=== PATIENT | female | born 1985 ===

== ENCOUNTER 2025-04-03 23:59 | Emergency (ER) | payer BC, SELFPAY ==
[2025-04-04 00:06] VITALS: BP 129/91
[2025-04-04 01:27] LABS: Hematocrit 35.5 % (37.0-47.0); Hemoglobin 12.8 g/dL (12.0-16.0); Mean Corp Hgb Conc. 36.1 g/dL (33.0-37.0); Mean Corpuscular Volume 88.8 fL (81.0-99.0); Nucleated Red Blood Cells % 0 %; Platelet Count 279 10^3/uL (130-400); Red Cell Dist. Width 12.1 % (11.5-14.5)
[2025-04-04 01:31] LABS: Urine Character Clear (Clear)
[2025-04-04 01:32] LABS: HCG, Serum Qualitative Screen Negative
[2025-04-04 01:36] LABS: ALT (SGPT) 15 U/L (0-35); AST (SGOT) 23 U/L (14-36); Albumin 4.6 g/dl (3.5-5.0); Alkaline Phosphatase 64 U/L (38-126); Blood Urea Nitrogen 14 mg/dl (7-17); Calcium 8.7 mg/dl (8.4-10.2); Carbon Dioxide 23 mmol/L (22-30); Chloride 110 mmol/L (98-107); Glucose 96 mg/dl (70-99); Potassium 4.0 mmol/L (3.5-5.1); Sodium 140 mmol/L (135-145); Total Protein 6.9 g/dl (6.3-8.2); eGFR > 60.00
--- NOTE | 2025-04-04 02:41 | ED.GENMED ---
History of Present Illness
General
Chief Complaint: Flank Pain
Source: patient
Exam Limitations: none
Time Seen by Provider: 04/04/25 00:29
Nursing documentation reviewed up to this point in time: agreed with
History of Present Illness
History of Present Illness:
Note:
CHIEF COMPLAINT(S)
Flank pain and recurrent urinary tract infections (UTIs).
HISTORY OF PRESENT ILLNESS
The patient is a 39-year-old female with a history of recurrent UTIs, currently presenting with flank pain persisting for a couple of weeks. The patient reports recently starting Macrobid (nitrofurantoin) after previously being on Bactrim
(sulfamethoxazole/trimethoprim). The patient mentions a history of renal artery concerns following a CT scan requested by her primary care physician, indicating a blockage that may impact blood pressure and exacerbate other symptoms. The CT scan
reportedly showed a smaller left kidney. Her current left flank pain has been attributed to this, though she also experiences bilateral flank issues.
The patient has been hospitalized twice this year for similar issues and reports that a urine test from recent examinations revealed the presence of Escherichia coli, marking the sixth similar occurrence this year.
The patient also mentions recently being diagnosed with cervical dysplasia and was advised surgery, which was delayed due to scheduling issues. There is noticeable voice changes, confusion, potentially related to potassium imbalances.
ADDITIONAL HISTORY OBTAINED FROM SOURCES OTHER THAN THE PATIENT
According to the patients primary care physician, a CT scan showed blockages between the kidney and bladder, which might influence blood pressure regulation.
EXTERNAL RECORDS REVIEWED
Based on recent imaging ordered by her primary care physician, there is a smaller presence of the left kidney with potential renal blockage in the artery between the kidney and bladder.
CHRONIC MEDICAL CONDITIONS SIGNIFICANTLY AFFECTING CARE
1. Recurrent urinary tract infections.
2. Cervical dysplasia.
REVIEW OF SYSTEMS
- Genitourinary: Recurrent urinary tract infections, blood in urine, flank pain.
- Neurological: Confusion, voice changes.
PHYSICAL EXAM
- Nursing notes reviewed and vital signs reviewed.
Vital signs and allergy list reviewed and agreed with.
GENERAL: Alert , in minimal to moderate apparent distress
EYE: pupils equal, EOMI, anicteric
NECK: Supple, no significant adenopathy. No masses. Trachea midline
ENT: Oropharynx is clear, mmm.
CARDIAC: Regular rate and rhythm . No M/R/G
LUNGS: Clear breath sounds bilaterally, no acute respiratory distress, no wheezes/rales/rhonchi
ABDOMEN: Soft, without focal tenderness, no r/g, slight CVA tenderness bilaterally normal BSx4q
NEUROLOGICAL: Alert and oriented, no focal neuro deficits
SKIN: Warm and dry, skin intact. Well-healed scars on the bilateral forearms
MUSCULOSKELETAL: No edema, well perfused. Moves all 4 extremities
PSYCH: Normal and appropriate interaction.
PROBLEM LIST
Acute Problems:
1. Recurrent urinary tract infections with Escherichia coli.
2. Flank pain, currently affecting the left side.
3. Potassium imbalance leading to confusion and voice changes.
Chronic Problems:
1. Cervical dysplasia.
2. Recurrent UTIs.
PLAN
A CT scan to further evaluate the kidneys will be conducted today.
DIFFERENTIAL DIAGNOSIS
The Differential Diagnosis includes, in no particular order and is not limited to:
1. Pyelonephritis
2. Urolithiasis
3. Renal artery stenosis
4. Hydronephrosis
5. Cystitis
6. Renal infarction
7. Interstitial nephritis
8. Polycystic kidney disease
9. Urinary tract obstruction
10. Vesicoureteral reflux
Disposition:
SUMMARY OF ENCOUNTER
A 39-year-old female presented with flank pain and a history of recurrent urinary tract infections. She has been on multiple antibiotics and is followed by her primary care physician. A recent CT scan was negative, and lab results, including
potassium levels, were within normal limits at 4.0.
PLAN
The patient will continue with her home medications and has been prescribed nitrofurantoin.
INDEPENDENT REVIEW OF LABS AND INTERPRETATION OF TESTS
My independent review of labs shows potassium level at 4.0, which is within the normal range.
FOLLOW-UP INSTRUCTIONS
The patient will follow up with the urology team for further evaluation and management.
MEDICATION RECONCILIATION
The patient was prescribed nitrofurantoin.
MEDICAL DECISION MAKING
- Number and Complexity of Problems Addressed: Chronic conditions affecting care include recurrent urinary tract infections and flank pain.
- Data:
Category 1: Non-emergency department records reviewed. Labs reviewed, including potassium.
- Category 2: My independent interpretation of the CT scan confirms negative findings.
- Risk: Prescription medication was prescribed.
DIAGNOSIS
- Flank pain (R10.9)
- Recurrent urinary tract infections (N39.0)
Phy Exam
Physical Exam
Physical Exam:
.
Sepsis
Sepsis Screening
Sepsis Assessment: Sepsis Ruled Out
Sepsis Screen
Sepsis Screen: Sepsis Ruled Out
Date: 04/05/25
Time: 03:05
Course
Orders/Labs/Results
Orders:
Orders
04/04/25 00:24
Test Result ONCE
04/04/25 00:30
CT Abd/pel Without Iv Or Oral Urgent
Comment:
Reason For Exam: flank pain
04/04/25 01:04
Complete Blood Count/With Diff Urgent
Comprehensive Metabolic Panel Urgent
HCG, Serum Qualitative Screen Urgent
Urinalysis Reflex To Culture Urgent
Date Specimen was Collected: 04/04/25
Time Specimen was Collected: 00:23
Urine Microscopic Reflex Cult Urgent
04/04/25 02:41
Ketorolac [Toradol] 15 mg IM NOW STA
Abnormal Lab Results
04/04/25
01:04
RBC 4.00 L 10^6/uL
(4.20-5.40)
Hct 35.5 L %
(37.0-47.0)
MCH 32.0 H pg
(27.0-31.0)
Chloride 110 H mmol/L
(98-107)
Ur Occult Blood Reflex 2+ A
(Negative)
Urine RBC 7-10 A /HPF
(0-2)
Urine Bacteria (Reflex) Few A
(Negative)
Urine Albumin (Reflex) 2+ A
(Neg - Trace)
04/04/25 01:04
04/04/25 01:04
Vital Signs
Initial and Last Documented VS:
Initial Vital Signs
Temp Pulse BP Pulse Ox
98.5 F 99 129/91 98
04/04/25 00:06 04/04/25 00:06 04/04/25 00:06 04/04/25 00:06
Last Documented Vital Signs
Temp Pulse Resp BP Pulse Ox
98.5 F 87 18 126/87 100
04/04/25 00:06 04/04/25 03:01 04/04/25 03:01 04/04/25 03:01 04/04/25 03:01
*Radiology
Radiology exam reviewed: radiology read reviewed
*Pulse Oximetry
SaO2: 98
Oxygen Mode of Delivery: Room air
Patient hypoxic: no
*Critical Care Note
Total Time (30-74mins, 75-104mins- exclusive of procedures): Not Applicable
Update Note
Update Note:
NAME: MARISEL ROSAS
DATE OF EXAM: 04/04/2025
Patient No: [id number]
Physician: SURINDER^MELE^Jenn
Date of : 1985
Past Medical History (entered by Technologist):
Reason For Exam (entered by Technologist):
Other Notes (entered by Technologist): pt states h/o uti, feels like she has uti
Additional Information (per [facility]):
CT ABDOMEN AND PELVIS WITHOUT IV CONTRAST
Comparison: None available
IMPRESSION:
No evidence for ureteral or hydronephrosis bilaterally. Punctate nonobstructing left renal calculus. No significant perinephric stranding. Urinary bladder is grossly unremarkable.
Gallbladder and pancreas are gross unremarkable. Hepatomegaly.
Moderate right colonic stool. No bowel obstruction. Appendix is unremarkable.
Report finalized/faxed at 2:37 AM ET. If there are any questions, please contact [facility] at [phone].
Jamison Sawyer M.D.
This report has been electronically signed and verified by the Radiologist whose name is printed above.
ED Attending Note
-
Portions of this chart may have been created with voice recognition software.� Occasional wrong word or��sound alike� substitutions may have occurred due to the inherent limitations of voice recognition software.
Discharge Plan
Departure
Patient Disposition: Home (Routine Discharge)
Date of Disposition: 04/04/25
Time of Disposition: 02:45
Patient with high blood pressure during this ER visit?: Yes
Condition: Fair
Discharge Problem:
Flank pain
Instructions: Flank Pain (DC), BLOOD PRESSURE
Prescriptions:
New
diclofenac sodium 75 mg tablet,delayed release (DR/EC)
75 mg PO BID Qty: 10 0RF
phenazopyridine [Pyridium] 100 mg tablet
100 mg PO TID 3 Days Qty: 9 0RF
Referrals:
Asad Reeder MD [Active, Urology] - Next open appointment
UNKNOWN - PT DOES,NOT KNOW [Family Provider]
Activity Restrictions/Additional Instructions:
Thank You for choosing [facility].
It was a pleasure meeting you and taking part in your care. We hope for your continued healing and wellness.
Please read discharge instructions in their entirety. However, they are for general education and may not describe your exact diagnosis at discharge. Information on your ER visit and medical conditions were discussed with you along with appropriate
follow up information...
If indicated, please take your medications as instructed and indicated on discharge paperwork.
Please schedule a follow up appointment as directed. Call to schedule an appointment
Please return to the emergency department with ANY change in, persisting, or worsening of symptoms. If any of your symptoms do not improve, or persist, or become more severe within 6-12 hours, please return to the emergency department for further
care.
Please return to the emergency department if you develop a headache, neck pain/stiffness, fever greater than 100.4F, chest pain, shortness of breath, persistent nausea, vomiting, slurred speech, difficulty walking, numbness/tingling, weakness, signs
of infection or any other symptoms that are worrisome to you.
If you have any questions or concerns please do not hesitate to call the Hospital at
Interventions
Interventions:
*Risk Screen - Suicide Last Done: 04/04/25 00:11
*General Assessment Last Done: 04/04/25 03:02
*Neglect/Abuse Screening Last Done: 04/04/25 00:11
*ED- Fall Risk Assessment Last Done: 04/04/25 00:11
*ED COVID-19 Vaccine History Last Done: 04/04/25 00:11
*Nursing Disposition Last Done: 04/04/25 03:02
NE-Zdgclb-Hstejnillk Assessment Last Done: 04/04/25 02:02
ED-Female Genitourinary Assessment Last Done: 04/04/25 02:02
Discharge Date and Time
Discharge Date/Time: 04/04/25 03:02
Print Language: CROATIAN
[2025-04-04] MEDS: TORADOL 15 MG IM (02:54)
[2025-04-04 03:01] VITALS: BP 126/87
== END 2025-04-04 03:02 | disposition home or self-care (01) ==
LOC: EMR 23:59
PROVIDERS: Emergency Medicine; EMERGENCY PHYSICIAN Student in an Organized Health Care Education/Training Program
DX: R10.9 Unspecified abdominal pain (principal); Z87.440 Personal history of urinary (tract) infections
CPT/HCPCS: 99284; 96372; 74176; 80053; 81003; 81015; 84703; 85025